=== PATIENT | female | born 1945 | race Caucasian/White ===

== ENCOUNTER 2019-06-04 18:23 | Emergency (ER) | payer MEDICARE, OTHER ==
[~2019-06-04] VITALS: Ht 157.5 cm; Wt 63.5 kg
--- NOTE | 2019-06-04 19:22 | NUR ---
SEEN AND EXAMINED BY
--- NOTE | 2019-06-04 19:22 | NUR ---
PT CAME TO ER C/O FALL DUE TO MISSTEP. ABRASION ON THE LEFT UPPER CHEEK. -KO. AAOX4. NO SOB BREATHING EVENLY AND UNLABORED. CONNECTED TO MONITOR.
--- NOTE | 2019-06-04 19:26 | NUR ---
TAKEN TO CT.
--- NOTE | 2019-06-04 19:33 | NUR ---
RETURN FROM CT/
[2019-06-04 19:55] VITALS: BP 149/74
--- NOTE | 2019-06-04 20:20 | NUR ---
Patient discharged to home in stable condition. Written and verbal after care instructions given. Patient verbalizes understanding of instruction.
== END 2019-06-04 20:20 | disposition home or self-care (01) ==
LOC: ER 18:32
DX: S00.83XA Contusion of other part of head, initial encounter (principal); E11.9 Type 2 diabetes mellitus without complications; I10 Essential (primary) hypertension; W01.0XXA Fall on same level from slipping, tripping and stumbling without subsequent striking against object, initial encounter; Y93.89 Activity, other specified; Y92.89 Other specified places as the place of occurrence of the external cause; Y99.8 Other external cause status
CPT/HCPCS: 70450-TC

== ENCOUNTER 2020-01-24 13:25 | Inpatient (IN) | payer OTHER ==
[~2020-01-24] VITALS: Ht 167.6 cm; Wt 66.7 kg
--- NOTE | 2020-01-24 13:26 | NUR ---
Patient bibra, from home, altered last known well last night per paramedics. On room air, breathing evenly and unlabored. connected to the monitor and pulse ox. kept comfortable, will continue to monitor accordingly.
[2020-01-24] MEDS ORDERED: ATOR20TA PO (13:41)
[2020-01-24] MEDS ORDERED: SITA100T PO (13:41)
[2020-01-24] MEDS ORDERED: METF-881 PO (13:41)
[2020-01-24] MEDS ORDERED: GLIM4TAB37 PO (13:41)
[2020-01-24] MEDS ORDERED: IV NS 0.9% 1,000 ML IV ONE (14:30)
--- NOTE | 2020-01-24 15:02 | NUR ---
CALLED [facility] [phone] IT IS BEING READ.
--- NOTE | 2020-01-24 15:05 | NUR ---
TELE NEURO, DR KELLY TALKING TO DR PRABHAKAR.
[2020-01-24 15:23] LABS: BASOPHILS % (AUTO) 0.3 % (0.0-2.0); EOSINOPHILS % (AUTO) 0.4 % (0.0-6.0); HEMATOCRIT 42 % (33-45); HEMOGLOBIN 13.1 g/dL (11.5-14.8); LYMPHOCYTES % (AUTO) 8.2 % (20.0-44.0); MEAN CORPUSCULAR HGB CONC 32 g/dl (31.0-36.0); MEAN CORPUSCULAR VOLUME 92 fL (82-100); MONOCYTES % (AUTO) 8.4 % (2.0-12.0); NEUTROPHILS # (AUTO) 9.7 /CMM (1.8-8.9); NEUTROPHILS % (AUTO) 82.7 % (43.0-81.0); PLATELET COUNT (AUTO) 240 /CMM (150-450); RED BLOOD CELL COUNT(AUTO) 4.54 MIL/uL (4.0-5.2); WHITE BLOOD COUNT (AUTO) 11.7 K/uL (4.3-11.0)
[2020-01-24 15:32] LABS: CALCIUM, SERUM 8.5 mg/dL (8.5-10.1); CARBON DIOXIDE 24 mmol/L (21-32); CHLORIDE 108 mmol/L (98-107); CREATININE 0.9 mg/dL (0.6-1.3); GLUCOSE 273 mg/dL (74-106); POTASSIUM 4.5 mmol/L (3.5-5.1); SODIUM SERUM 144 mmol/L (136-145); UREA NITROGEN, BLOOD 16 mg/dL (7-18)
[2020-01-24 15:35] LABS: ALCOHOL, BLOOD < 3 mg/dL (0-0)
[2020-01-24 15:36] LABS: ACETAMINOPHEN < 2 ug/ml (10-30); SALICYLATE < 2.8 mg/dL (2.8-20.0)
[2020-01-24 15:38] LABS: ALANINE AMINOTRANSFERASE 13 U/L (12-78); ALKALINE PHOSPHATASE 86 U/L (46-116); ASPARTATE AMINOTRANSFERASE 15 U/L (15-37); BILIRUBIN,DIRECT 0.1 mg/dL (0.0-0.2); BILIRUBIN,TOTAL 0.3 mg/dL (0.2-1.0); TOTAL PROTEIN, SERUM 6.9 g/dL (6.4-8.2)
--- NOTE | 2020-01-24 15:45 | NUR ---
Called talia and spoke to him, per his fell around 3am and last known well was 9am and around 12 noon he noticed that his keeps falling and altered and called paramedics. Dr. Tello aware of the story from .
[2020-01-24 15:47] LABS: APPEARANCE,URINE Slightly Cloudy (CLEAR); BILIRUBIN,URINE Negative (NEGATIVE); BLOOD, URINE Negative Ery/uL (NEGATIVE); COLOR,URINE Yellow (YELLOW); KETONES,URINE Trace (NEGATIVE); LEUKOCYTE ESTERASE ,URINE Negative (NEGATIVE); NITRITE, URINE Negative (NEGATIVE); PROTEIN,URINE Negative (NEGATIVE); UGLUCOSE >=1000 mg/dL (NEGATIVE); UROBILINOGEN,URINE 0.2 EU/dL (0.2)
[2020-01-24 15:55] LABS: BACTERIA,URINE None seen /HPF (None Seen); RBC,URINE 0-2 /HPF (0-2); SQUAMOUS EPITHELIAL CELL,UR Few /HPF (None Seen); WBC,URINE 0-2 /HPF (0-3)
[2020-01-24] MEDS ORDERED: CEFTRIAXONE 1GM BAG (ER ONLY) 50 ML IV ONE (15:59)
[2020-01-24] MEDS ORDERED: CEFTRIAXONE 1 G in IV D5W 50 ML IV ONE (16:00)
[2020-01-24] MEDS ORDERED: NS 0.9% IV ONE (16:00)
[2020-01-24] MEDS ORDERED: IV NS 0.9% 250 ML IV ONE (16:19)
[2020-01-24] MEDS ORDERED: IOHEXOL-350 100 ML VIAL IV ONE (16:19)
[2020-01-24] MEDS ORDERED: CT SWABBABLE VALVE TRANS SET 1 EA INFUS.SET MC ONE (16:19)
--- NOTE | 2020-01-24 17:16 | NUR ---
tele neurology,dr marti paged at [phone]
[2020-01-24] MEDS ORDERED: CLOPIDOGREL BISULFATE 75 MG TABLET PO ONE (17:30)
[2020-01-24] MEDS ORDERED: ASPIRIN 81 MG TAB.CHEW PO ONE (17:30)
[2020-01-24] MEDS ORDERED: ASPIRIN EC 81 MG TABLET.DR PO ONE (17:37)
[2020-01-24] MEDS ORDERED: CLOPIDOGREL BISULFATE 75 MG TABLET ONE (17:37)
--- NOTE | 2020-01-24 18:05 | NUR ---
CALLED NURSING ACCOUNTS PAYABLE SPECIALIST FOR TELE BED.
[2020-01-24] MEDS ORDERED: hydrALAZINE HCL IV 20 MG VIAL IV PRN (18:30)
--- NOTE | 2020-01-24 19:04 | NUR ---
PATIENT SERVICES REPRESENTATIVE AT BEDSIDE FOR LORNE
--- NOTE | 2020-01-24 19:15 | NUR ---
PT AAOX2, VSS, NOT IN RESPIRATORY DISTRESS, PT CONNECTED TO THE ROLL SCALE MAN AND POX.
--- NOTE | 2020-01-24 20:40 | NUR ---
TEXTED DR. SUAREZ FOR MRI APPROVAL.
[2020-01-24] MEDS ORDERED: ATORVASTATIN 40 MG TABLET PO SCH (22:00)
[2020-01-24 22:30] VITALS: BP 125/62
--- NOTE | 2020-01-24 22:30 | NUR ---
HOT PRESS OPERATOR NOTES RECEIVED PATIENT VIA GUR[facility]GO. A/O X1-2, VERY CONFUSED. ON RA, NO SOB/ ACUTE RESPIRATORY DISTRESS NOTED. NO COMPLAINTS OF PAIN AT THE MOMENT. IV ON LEFT AC #18G IS PATENT AND INTACT. PATIENT ORIENTED TO ROOM. BED IS IN LOWEST LOCKED POSITION WITH SIDE RAILS UP X3, SEMI FOWLERS. CALL LIGHT IS WITHIN REACH. WILL CONTINUE TO MONITOR.
--- NOTE | 2020-01-24 22:36 | NUR ---
PT TRANSFERRED TO ROOM IN STABLE CONDITION
[2020-01-24] MEDS: BLOOD SUGAR DIAGNOSTIC 1 EACH STRIP IN SCH (22:58)
--- NOTE | 2020-01-24 23:00 | NUR ---
IVORY CARVER NOTES DUE TO PATIENT BEING A/O X1-2 & CONFUSED, I CALLED PATIENT'S (DIOGO SELLERS) MULTIPLE TIMES TO GATHER INFORMATION/ OBTAIN HISTORY FOR ADMISSION. PATIENT'S DID NOT ANSWER PHONE. WILL CONTINUE TO MONITOR PATIENT.
[2020-01-24] MEDS: IV NS 0.9% 1,000 ML IV PRN (23:07)
--- NOTE | 2020-01-24 23:45 | NUR ---
BALL WORKER NOTES PATIENT TRANSFERRED TO ROOM 307 TO HAVE SITTER. PATIENT IS CONFUSED- PULLED OUT IV ON LEFT AC. INSERTED NEW IV IN LEFT FOREARM #22G. WILL CONTINUE TO MONITOR PATIENT. Addendum: 01/25/20 at 0547 by ARIANNA TANG RN INSERTED NEW IV IN RIGHT FOREARM #22G.
[2020-01-25] MEDS: BLOOD SUGAR DIAGNOSTIC 1 EACH STRIP IN SCH ×7 (00:47→22:12)
[2020-01-25 04:00] VITALS: BP 119/99
[2020-01-25] MEDS: IV NS 0.9% 1,000 ML IV PRN (05:17)
--- NOTE | 2020-01-25 06:43 | NUR ---
WASTE HANDLING TECHNICIAN CLOSE NOTES PATIENT IS LAYING IN BED. A/O X1-2, CONFUSED. ON RA, NO SOB/ ACUTE RESPIRATORY DISTRESS NOTED. TELE MONITOR READING SR, 66. IV IN RIGHT FOREARM #22G IS PATENT AND INTACT. ALL ACCUCHECKS DONE. APPEARS COMFORTABLE/ NO COMPLAINTS OF PAIN AT THE MOMENT. BED IS IN LOWEST LOCKED POSITION WITH SIDE RAILS UP X3, SEMI FOWLERS. SITTER IS AT BEDSIDE. CALL LIGHT IS WITHIN REACH. WILL ENDORSE TO AM NURSE.
[2020-01-25 07:02] LABS: BASOPHILS % (AUTO) 0.4 % (0.0-2.0); EOSINOPHILS % (AUTO) 4.2 % (0.0-6.0); HEMATOCRIT 37 % (33-45); HEMOGLOBIN 12.2 g/dL (11.5-14.8); LYMPHOCYTES # (AUTO) 2.7 /CMM (0.8-4.8); LYMPHOCYTES % (AUTO) 27.7 % (20.0-44.0); MEAN CORPUSCULAR HGB CONC 33 g/dl (31.0-36.0); MEAN CORPUSCULAR VOLUME 88 fL (82-100); MONOCYTES # (AUTO) 1.1 /CMM (0.1-1.30); NEUTROPHILS # (AUTO) 5.5 /CMM (1.8-8.9); NEUTROPHILS % (AUTO) 56.7 % (43.0-81.0); PLATELET COUNT (AUTO) 219 /CMM (150-450); RED BLOOD CELL COUNT(AUTO) 4.19 MIL/uL (4.0-5.2); WHITE BLOOD COUNT (AUTO) 9.7 K/uL (4.3-11.0)
[2020-01-25 07:05] LABS: CALCIUM, SERUM 8.5 mg/dL (8.5-10.1); CREATININE 0.7 mg/dL (0.6-1.3); POTASSIUM 3.2 mmol/L (3.5-5.1)
--- NOTE | 2020-01-25 07:41 | NUR ---
TELE/RN NOTE 0730 BLOOD SUGAR CHECK IS NOT DONE DUE TO PATIENT REFUSAL. THE PATIENT`S BLOOD SUGAR WAS ALREADY CHECKED BY SCREEN PRINTER HELPER NURSE AT 0623 WITH READING OF 148.
[2020-01-25 08:00] VITALS: BP 138/68
[2020-01-25] MEDS ORDERED: ASPIRIN EC 325 MG TABLET.DR PO SCH (09:00)
[2020-01-25] MEDS: DOCUSATE SODIUM 100 MG CAPSULE PO SCH (09:01)
[2020-01-25] MEDS: CLOPIDOGREL BISULFATE 75 MG TABLET PO SCH (09:01)
[2020-01-25] MEDS: PANTOPRAZOLE 40 MG TABLET.DR PO SCH (09:01)
[2020-01-25] MEDS: ASPIRIN EC 81 MG TABLET.DR PO SCH (09:13)
[2020-01-25] MEDS: POTASSIUM CL. PREMIX PERIPHER. 50 ML IV SCH ×4 (09:13→17:47)
[2020-01-25] MEDS: ENOXAPARIN SODIUM 40 MG/0.4 ML DISP.SYRIN SQ SCH (09:13)
[2020-01-25 12:00] VITALS: BP 127/70
--- NOTE | 2020-01-25 12:12 | NUR ---
TELE/RN NOTE THE PATIENT IS OUT FROM THE UNIT FOR MRI.
--- NOTE | 2020-01-25 12:42 | NUR ---
TELE/RN NOTE DR PADILLA IS MADE AWARE OF BLOOD SUGAR LEVEL OF 197. RECEIVED AN ORDER FOR SLIDING SCALE MILD ACHS. NOTED AND CARRIED OUT.
[2020-01-25] MEDS ORDERED: DEXTROSE 50%-WATER 50 ML DISP.SYRIN IV PRN (13:00)
[2020-01-25] MEDS ORDERED: BLOOD SUGAR DIAGNOSTIC 1 EACH STRIP IN SCH (13:00)
--- NOTE | 2020-01-25 13:22 | NUR ---
TELE/RN NOTE DR CAMPBELL (NEUROSURGERY) AWARE OF MRI BRAIN RESULT AND PER MD NO NEW ORDER.
[2020-01-25] MEDS: INSULIN REGULAR, HUMAN 100 UNIT/ML 3 ML VIAL SQ PRN ×3 (14:02→22:19)
--- NOTE | 2020-01-25 14:50 | NUR ---
10:00am cargo services coordinator consult requested by Tab Myers DNP for stroke protocol (CVA). Patient is a 74-year-old female. Per MD notes, patient came from home with an altered mental status. Patient is alert and oriented x2. Patient reported to this SW that the current year is 1989. Patient is currently confused and unable to participate in a meaningful conversation at this time. Unable to complete adoption social worker consultation, but this SW will follow-up with the patients Peter (per patients face sheet). This SW to remain available for all needs regarding this patient.
--- NOTE | 2020-01-25 18:00 | NUR ---
TELE/RN NOTE DR WOLFE IS AWARE OF MRI BRAIN AND MRI CSPINE RESULT.
--- NOTE | 2020-01-25 18:13 | NUR ---
TELE/RN NOTE THE PATIENT IS ALERT AND ORIENTED X1. DENIES PAIN AT THIS TIME. THE PATIENT IS IN NO APPARENT DISTRESS. IN ROOM AIR AND SATURATION IS AT 96%. DENIES SOB. RESPIRATION REGULAR AND UNLABORED. THE PATIENT IS IN NO APPARENT DISTRESS. RFA G 22 PATENT AND NS INFUSING AT 100ML/HR. NO S/S INFILTRATION NOTED. BED LOW AND LOCKED. SIDE RAILS UP X3. CALL LIGHT WITHIN REACH. WILL ENDORSE TO AUTOMATIC BEAM WARPER TENDER.
[2020-01-25 20:00] VITALS: BP 130/69
--- NOTE | 2020-01-25 20:16 | NUR ---
MS/TELE/ORDER BLOOD CULTURE RESULT OF GRAM POSITIVE COCCI IN CLUSTERS RECEIVED FROM LAB, DR MELISSA HOLLINS NOTIFIED WITH ORDER FOR VANCOMYCIN PHARMACY TO DOSE, ORDER CARRIED OUT, PHARMACY NOTIFIED.
[2020-01-25] MEDS ORDERED: VANCOMYCIN 1.25 GM in IV D5W 250 ML IV ONE (21:00)
[2020-01-25] MEDS ORDERED: ATORVASTATIN 40 MG TABLET PO SCH (22:00)
[2020-01-26 00:28] VITALS: BP 143/73
[2020-01-26] MEDS: IV NS 0.9% 1,000 ML IV PRN (01:31)
[2020-01-26 04:00] VITALS: BP 145/71
[2020-01-26] MEDS: BLOOD SUGAR DIAGNOSTIC 1 EACH STRIP IN SCH ×3 (06:29→18:13)
[2020-01-26] MEDS: INSULIN REGULAR, HUMAN 100 UNIT/ML 3 ML VIAL SQ PRN ×2 (06:31→12:50)
[2020-01-26 06:44] LABS: CALCIUM, SERUM 8.8 mg/dL (8.5-10.1); CREATININE 0.7 mg/dL (0.6-1.3); POTASSIUM 3.9 mmol/L (3.5-5.1)
--- NOTE | 2020-01-26 06:50 | NUR ---
MS/TELE/RN PATIENT IS AWAKE, COMFORTABLE, SIGNS OF DISTRESS NOTED, ALL NEEDS ATTENDED AT THIS TIME, WILL CONTINUE TO MONITOR.
--- NOTE | 2020-01-26 07:30 | NUR ---
Patient alert and oriented x2 , able to follow directions , able to unswear on simple question . Patient has trouble to complete full sentence. IV line intact and patent . Will endorse to next shift for RADHA Addendum: 01/26/20 at 1751 by JOHN CASTILLO RN Will continue to monitor and assess frequently
[2020-01-26 08:00] VITALS: BP_SYST 134; BP_SYST 92; BP_DIAS 51; BP_DIAS 62
[2020-01-26] MEDS: DOCUSATE SODIUM 100 MG CAPSULE PO SCH (08:29)
[2020-01-26] MEDS: ASPIRIN EC 81 MG TABLET.DR PO SCH (08:29)
[2020-01-26] MEDS: PANTOPRAZOLE 40 MG TABLET.DR PO SCH (08:29)
[2020-01-26] MEDS: CLOPIDOGREL BISULFATE 75 MG TABLET PO SCH (08:29)
[2020-01-26] MEDS: ENOXAPARIN SODIUM 40 MG/0.4 ML DISP.SYRIN SQ SCH (08:36)
[2020-01-26] MEDS: GLIMEPIRIDE 4 MG TABLET PO SCH ×2 (09:29→16:48)
[2020-01-26] MEDS ORDERED: Medication Not On Formulary EA (Atorvastatin Calcium (Lipitor) 20 MG) PO SCH (09:30)
[2020-01-26] MEDS ORDERED: Medication Not On Formulary EA (Sitagliptin Phosphate (Januvia) 100 MG) PO SCH (09:30)
[2020-01-26] MEDS ORDERED: METFORMIN XR 500 MG TAB.SR.24H PO SCH (09:30)
[2020-01-26] MEDS: LINAGLIPTIN 5 MG TABLET PO SCH (09:31)
--- NOTE | 2020-01-26 12:00 | NUR ---
Patient is able to wakl to bathroom with standby assistance.
[2020-01-26] MEDS: VANCOMYCIN 1 GM in IV D5W 250 ML IV SCH (15:11)
--- NOTE | 2020-01-26 15:15 | NUR ---
Patient seen by dr. Hubbard. Patient will need acute rehab.
[2020-01-26 16:00] VITALS: BP 134/56
--- NOTE | 2020-01-26 16:20 | NUR ---
Patient's updated on plan of care and patient's condition
[2020-01-26] MEDS: METFORMIN XR 500 MG TAB.SR.24H PO SCH (16:48)
[2020-01-26] MEDS ORDERED: METFORMIN 500 MG TABLET PO SCH (17:00)
--- NOTE | 2020-01-26 18:38 | NUR ---
Patient is resting comfortable in bed. No distress noted , VS are stable , denies pain . No changes in condition noted. IV fluid is running as ordered. Patient was able to use BR with assistance. All needs attended . Sitter at bedside. Call light within reach. Will endorse to next shift for RADHA .
[2020-01-26 20:00] VITALS: BP 170/68
--- NOTE | 2020-01-26 20:00 | NUR ---
MS GONZALEZ INITIAL NOTES RECEIVED REPORT FROM AM NURSE AND SEEN PT IN BED AWAKE AND ALERT WATCHING TV AT THIS TIME . DENIES ANY PAIN OR ANY DISCOMFORT. NOTICED FACIAL DROOP ON HER LEFT FACE. BUT ABLE TO SPEAK CLEARLY SHE ALSO ABLE TO EAT AND SWALLOW WITHOUT ANY DISCOMFORT. RESPIRATION EVEN AND NON-LABORED. SKIN WARM TO TOUCH. KEPT HER WARM AND COMFORTABLE AT ALL TIMES. SITTER AT THE BEDSIDE FOR SAFETY. WILL CONTINUE MONITORING.
[2020-01-26] MEDS: ATORVASTATIN 10 MG TABLET PO SCH (21:47)
--- NOTE | 2020-01-26 22:00 | NUR ---
MS INFORMATION ARCHITECT NOTES' ROUTINE MEDS GIVEN WITH APPLE SAUCE AND PT TOLERATED WELL. NO ASPIRATION NOTED.
[2020-01-27] MEDS: BLOOD SUGAR DIAGNOSTIC 1 EACH STRIP IN SCH ×4 (00:31→20:11)
--- NOTE | 2020-01-27 00:34 | NUR ---
ms clinical research spec notes Blood sugar checked done 169, no coverage as ordered. no signs of hypo glycemia noted. will continue monitoring.
[2020-01-27 06:39] VITALS: BP 140/68
--- NOTE | 2020-01-27 07:00 | NUR ---
ms counselor education professor closing notes pt remain sleeping comfortably in bed without any distress noted. blood sugar checked done 136 no coverages given as ordered. no signs of hypo glycemia noted. pt stable throughout the night . all due meds given and all needs met. kept her warm and comfortable at all times. morning care done with the helped of the liz Mia. will continue monitoring for safety. endorse to am nurse for continuity of care.
--- NOTE | 2020-01-27 07:41 | NUR ---
MS RN OPENING NOTES PATIENT IS AWAKE IN BED A/O X 2 WITH NO SIGNS OF DISTRESS AND SOB IN ROOM AIR. IV R FA#22 G INTACT RUNNING NS AT 100 ML/HR. NO COMPLAINS OF PAIN AT THIS TIME. SITTER PRESENT.SAFETY MEASURES ARE APPLIED BED IS LOW POSITION, LOCKED SIDE RAILS UP X 2 FOR SAFETY. CALL LIGHT WITHIN REACH WILL CONTINUE TO MONITOR.
[2020-01-27 08:00] VITALS: BP 136/75
[2020-01-27] MEDS: METFORMIN XR 500 MG TAB.SR.24H PO SCH ×2 (08:45→16:31)
[2020-01-27] MEDS: LINAGLIPTIN 5 MG TABLET PO SCH (08:45)
[2020-01-27] MEDS: GLIMEPIRIDE 4 MG TABLET PO SCH ×2 (08:45→16:31)
[2020-01-27] MEDS: ASPIRIN EC 81 MG TABLET.DR PO SCH (08:45)
[2020-01-27] MEDS: CLOPIDOGREL BISULFATE 75 MG TABLET PO SCH (08:45)
[2020-01-27] MEDS: DOCUSATE SODIUM 100 MG CAPSULE PO SCH (08:45)
[2020-01-27] MEDS: PANTOPRAZOLE 40 MG TABLET.DR PO SCH (08:49)
[2020-01-27] MEDS: ENOXAPARIN SODIUM 40 MG/0.4 ML DISP.SYRIN SQ SCH (08:51)
[2020-01-27 08:57] LABS: CALCIUM, SERUM 8.5 mg/dL (8.5-10.1); CREATININE 0.7 mg/dL (0.6-1.3); POTASSIUM 3.7 mmol/L (3.5-5.1)
[2020-01-27] MEDS: VANCOMYCIN 1 GM in IV D5W 250 ML IV SCH ×2 (09:18→21:23)
[2020-01-27] MEDS: INSULIN REGULAR, HUMAN 100 UNIT/ML 3 ML VIAL SQ PRN (11:58)
[2020-01-27] MEDS: IV NS 0.9% 1,000 ML IV PRN (13:21)
--- NOTE | 2020-01-27 15:04 | NUR ---
10am resident services manager consult requested by Tab Myers DNP for stroke protocol (CVA). Patient is a 74-year-old female. Per MD notes, patient came from home with an altered mental status. Patient is alert and oriented x2. This SW is following up on this [facility] first attempt to conduct assessment from 01/25/2020. Patient could not confirm her date of or provide her husbands name. SW to follow up with Peter per patients face sheet.
--- NOTE | 2020-01-27 15:05 | NUR ---
10:10 am This SW contacted patients Peter . reports that the patient and him live alone in the second story apartment. Per patients Peter, patient has a brother in [facility] and has family on the [facility]. Per Peter, he and the patient rely on neighbors to provide support in driving and close interactions (what does this mean?). Per Peter, patient has a walker and a cane but for the past few weeks patient has not wanted to use them. Patient had been using her for support. Peter reports that he cooks as the patient no longer wants to do that. Peter reports the following routine for this patient My wakes up, uses the bathroom, then goes into our living room and sits in front of the TV. She is there most of the day. In front of the TV she takes her naps. She sleeps most of the day. I wake her up to accompany me to the store at the corner. Thats it. Peter reports that he retired a year ago as that his was not feeling well. Peter reports that he decided to care for her during this time. Peter reports that he and the patient use a [employer] to socialize. Peter could not remember the name of this hotline. This SW asked Peter if this SW could provide information regarding In-Home Support System to help provide assistance in the home. Peter agreed to obtaining this information. Per Peter, he has been in contact with someone at [employer] and would call back to provide that information to this SW as he could not remember where he had placed [employer] contact information. This SW thanked Peter for his time and provided contact information for this creative writer. Peter requested an update on the patients status. This SW informed Peter that this creative writer could not provide medical updates as she is not a medical professional but would alert nursing staff to contact him to provide this update. Peter understood and thanked this SW. This SW to remain available for all needs regarding this patient. This SW to place in-home support application in patients chart to be given to patients .
--- NOTE | 2020-01-27 15:09 | NUR ---
This SW filed an Adult Protective Service report (reference [id number])per EMS report of an unsanitary home.
[2020-01-27 16:00] VITALS: BP 128/80
--- NOTE | 2020-01-27 19:20 | NUR ---
MS RN CLOSING NOTES PATIENT IS AWAKE IN BED A/O X 2 WITH NO SIGNS OF DISTRESS AND SOB IN ROOM AIR. IV R FA#22 G INTACT RUNNING NS AT 100 ML/HR. NO COMPLAINS OF PAIN AT THIS TIME. SITTER PRESENT. PATIENT REMAINED STABLE THROUGH OUT SHIFT. PATIENT KEP CLEAN AND DRY. ALL NEEDS, CARE, TREATMENT AND MEDICATIONS ADMINISTERED ANTICIPATED PER ORDER. SAFETY MEASURES ARE APPLIED, BED IS IN LOW POSITION POSITION BED IS LOCKED, WITH SIDE RAILS UP X 2 FOR SAFETY. CALL LIGHT WITHIN REACH. WILL ENDORSE TO THE NEXT ENVELOPE PATTERNMAKER.
--- NOTE | 2020-01-27 19:32 | NUR ---
MS RN NOTES RECEIVED PATIENT AWAKE IN BED ALERT/ORIENTED X 2 WITH NO SIGNS AND SYMPTOMS OF DISTRESS AND SOB IN ROOM AIR. PERIPHERAL IV LINE IV R FA#22 G INTACT RUNNING NS AT 100 ML/HR. NO COMPLAINS OF PAIN AT THIS TIME. SITTER PRESENT.. PATIENT KEEP CLEAN AND DRY. ALL NEEDS ANTICIPATED. SAFETY MEASURES IN PLACE, BED IS IN LOW POSITION POSITION BED IS LOCKED, WITH SIDE RAILS UP X 2 FOR SAFETY. SITTER AT BESIDE. CALL LIGHT WITHIN EASY REACH. WILL CONTINUE TO MONITOR ACCORDINGLY.
[2020-01-27 20:00] VITALS: BP 141/74
[2020-01-27] MEDS: ATORVASTATIN 10 MG TABLET PO SCH (21:28)
[2020-01-28] MEDS: BLOOD SUGAR DIAGNOSTIC 1 EACH STRIP IN SCH ×4 (00:13→17:26)
[2020-01-28] MEDS: INSULIN REGULAR, HUMAN 100 UNIT/ML 3 ML VIAL SQ PRN ×3 (00:28→12:15)
[2020-01-28 07:19] LABS: CALCIUM, SERUM 8.6 mg/dL (8.5-10.1); CREATININE 0.8 mg/dL (0.6-1.3)
--- NOTE | 2020-01-28 07:23 | NUR ---
MS RN OPENING NOTES PATIENT RECEIVED AWAKE IN BED IN NO ACUTE SIGNS OF DISTRESS. 1:1 SITTER PRESENT AT BEDSIDE. A/O X 2. VERBALLY DENIES PAIN OR ANY DISCOMFORTS AT THIS TIME. ON ROOM AIR, RESPIRATIONS ARE EVEN AND UNLABORED. IV ACCESS ON RFA G#22 INTACT AND PATENT, IVF RUNNING NS AT 40 ML/HR, NO S/S OF INFILTRATIONS AT SITE NOTED. SAFETY MEASURES IN PLACE: BED IS LOW POSITION, LOCKED WITH SIDE RAILS UP X 2 FOR SAFETY. CALL LIGHT WITHIN REACH. WILL CONTINUE TO MONITOR PT ACCORDINGLY.
--- NOTE | 2020-01-28 07:42 | NUR ---
RN NOTES ALL NEEDS ATTENDED AND MET ABLE TO REST AND SLEPT AT INTERVALS,SAFETY MEASURES IN PLACE, SITTER AT BEDSIDE. NO SIGNS OF PAIN OR DISCOMFORT. IV ACCESS INTACT AND PATENT. ENDORSED TO AM NURSE FOR CONTINUITY OF CARE.
[2020-01-28 08:00] VITALS: BP 132/71
[2020-01-28] MEDS: PANTOPRAZOLE 40 MG TABLET.DR PO SCH (08:20)
[2020-01-28] MEDS: GLIMEPIRIDE 4 MG TABLET PO SCH ×2 (08:21→17:11)
[2020-01-28] MEDS: DOCUSATE SODIUM 100 MG CAPSULE PO SCH (08:21)
[2020-01-28] MEDS: ASPIRIN EC 81 MG TABLET.DR PO SCH (08:21)
[2020-01-28] MEDS: METFORMIN XR 500 MG TAB.SR.24H PO SCH ×2 (08:22→17:11)
[2020-01-28] MEDS: CLOPIDOGREL BISULFATE 75 MG TABLET PO SCH (08:22)
[2020-01-28] MEDS: ENOXAPARIN SODIUM 40 MG/0.4 ML DISP.SYRIN SQ SCH (08:23)
[2020-01-28] MEDS: LINAGLIPTIN 5 MG TABLET PO SCH (08:23)
[2020-01-28] MEDS: VANCOMYCIN 1 GM in IV D5W 250 ML IV SCH (09:04)
[2020-01-28 16:00] VITALS: BP 133/70
--- NOTE | 2020-01-28 17:14 | NUR ---
RN NOTES PT NOTED WITH BS OF 65 MG/DL, PT IS ALERT AND ORIENTED X2-3 WITH NO S/S OF HYPOGLYCEMIA NOTED. ORANGE JUICE WAS GIVEN AND DINNER TRAY SERVED TO HER. PT EATING RIGHT NOW AND WILL CONTINUE TO MONITOR.
--- NOTE | 2020-01-28 18:32 | NUR ---
MS LEAD OPERATOR NOTES PATIENT DISCHARGED HOME WITH ASSISTED HOME HEALTH IN STABLE CONDITION. A/O X2-3. NOT IN ACUTE DISTRESS AT THIS TIME. V/S TAKEN, STABLE AND RECORDED. ALL BELONGINGS ACCOUNTED FOR AND PT ABLE TO SIGN FORM. PERIPHERAL LINE ON RIGHT FOREARM REMOVED W/ NO BLEEDING NOTED, DRY DRESSING APPLIED. NAME ARMBAND REMOVED. DISCHARGE INSTRUCTIONS AND EDUCATION PROVIDED TO PATIENT AND DIOGO, AND BOTH VERBALIZED UNDERSTANDING. PATIENT LEFT UNIT VIA WHEELCHAIR @ 1800 ACCOMPANIED BY AND [place] [facility] TO LOB. WAITING IN THE LOBBY TO TAKE PT HOME. CHARGE NURSE AWARE OF DISCHARGE.
== END 2020-01-28 18:31 | DRG 64 ==
LOC: ER 13:30 → TELE 20:58 → MED 01-26 10:14
PROVIDERS: ADMIT Nurse Practitioner Acute Care; ATTEND Internal Medicine
DX: I63.9 Cerebral infarction, unspecified (principal); G93.41 Metabolic encephalopathy; E87.2 Acidosis; M62.82 Rhabdomyolysis; N13.30 Unspecified hydronephrosis; E78.5 Hyperlipidemia, unspecified; I10 Essential (primary) hypertension; Z79.84 Long term (current) use of oral hypoglycemic drugs; Z79.899 Other long term (current) drug therapy; I70.0 Atherosclerosis of aorta; Z91.81 History of falling; I25.10 Atherosclerotic heart disease of native coronary artery without angina pectoris; D72.829 Elevated white blood cell count, unspecified; I67.2 Cerebral atherosclerosis; M25.78 Osteophyte, vertebrae; M43.12 Spondylolisthesis, cervical region; M48.02 Spinal stenosis, cervical region; M50.322 Other cervical disc degeneration at C5-C6 level; W18.30XA Fall on same level, unspecified, initial encounter; Y92.9 Unspecified place or not applicable; R40.2412 Glasgow coma scale score 13-15, at arrival to emergency department; R29.706 NIHSS score 6
CPT/HCPCS: 36415; 70450-TC; 70496-TC; 70498-TC; 70551-TC; 71045-TC; 72125-TC; 72141-TC; 80048-TC; 80061-TC; 80076-TC; 80202-TC; 80305; 81000-TC; 82550-TC; 82962-TC; 83605-TC; 83880; 84439-TC; 84443-TC; 84484-TC; 85025-TC; 85652-TC; 85730-TC; 87040-TC; 87081-TC; 87086-TC; 92611-TC; 93307-TC; 93880-TC; 97110-TC; 97112-TC; 97116-TC; 97530-TC; C9803-CS; G0378; G0480; J0696; J1650; J1815; J3370; J3480; J7030; J7050; J7060; Q9967